=== PATIENT | male | born 1970 | race Caucasian/White ===

== ENCOUNTER 2020-04-14 01:41 | Outpatient (CLI) | payer OTHER, BC, SELFPAY ==
[2020-04-14 18:01] LABS: SARS-CoV-2 RNA PCR Negative
== END 2020-04-14 01:42 | disposition home or self-care (01) ==
LOC: ANHCOVIDDT 01:42
PROVIDERS: PCP Family Medicine; Visit Provider Internal Medicine Gastroenterology
DX: Z01.812 Encounter for preprocedural laboratory examination (principal); Z20.828 Contact with and (suspected) exposure to other viral communicable diseases
CPT/HCPCS: 87635; C9803; U0003

== ENCOUNTER 2020-04-17 03:50 | Day surgery (SDC) | payer OTHER, BC, SELFPAY ==
[2020-04-06 16:07] VITALS: BMI 25.0
[2020-04-17] MEDS: LACTATED RINGERS 1,000 ML 150 ML IV CONT (08:34)
[2020-04-17 08:40] VITALS: BP 134/91; PULSE 78; RESP 16; TEMP 36.6; O2SAT 97; BMI 25.0
--- NOTE | 2020-04-17 09:01 | P.PNAN_ITS ---
Anes - Initial Pre Proc Eval Procedure: Operation Date: 04/17/20 09:30 Proposed Procedures p Esophagogastroduodenoscopy & Screening Colonoscopy - Corey Combs MD Date/Time: 04/17/20 09:01 Surgeon: Corey Frankel MD Pre Op Diagnosis: GERD, neoplasm screening Patient Data Age: 49 Gender: M Height: 5 ft 6 in Weight: 70.3 kg Last Vital Signs Temp 97.9 F 04/17/20 08:40 Pulse 78 04/17/20 08:40 Resp 16 04/17/20 08:40 BP 134/91 H 04/17/20 08:40 Pulse Ox 97 04/17/20 08:40 Allergies Allergy/AdvReac Type Severity Reaction Status Date / Time No Known Allergies Allergy Verified 04/17/20 08:19 Home Medications Medication Instructions Recorded Confirmed Type fluticasone propionate 50 2 spray NASAL DAILY PRN 07/26/19 04/17/20 History mcg/actuation nasal spray,suspension sildenafil 50 mg tablet 50 mg PO DAILY PRN 07/26/19 04/06/20 History atorvastatin 20 mg tablet 20 mg PO DAILY #90 tablet 03/22/20 04/06/20 Rx ezetimibe 10 mg tablet 10 mg PO DAILY #90 tablet 03/22/20 04/06/20 Rx peg 3350-electrolytes 236 240 ml PO Q10M #4000 ml 04/02/20 Rx gram-22.74 gram-6.74 gram-5.86 gram solution Patient hx anesthesia problems: none Family hx anesthesia problems: none PMFSH Social History Social History Smoking status: Never smoker Alcohol intake: never Anes - Eval Final PreProcedure Day of Procedure 04/17/20 09:01 Patient weight: normal Heart: regular rate and rhythm Lungs: clear to auscultation Airway: Mallampati scale class II Neurological: alert and oriented Last oral intake: >/= 8 hours ASA classification: II Emergent: no Anesthetic plan: proceed Anesthesia type and monitoring: general GIVS and standard monitoring Informed Consent: The patient's anesthetic plan and its attendant risks and benefits were discussed with the patient/family/POA. Questions were solicited and answers provided to the satisfaction of the patient/family/POA.
--- NOTE | 2020-04-17 10:29 | PM.HPGS ---
History of Present Illness History of Present Illness Consent: Risks, benefits, and alternatives have been discussed and questions answered. Patient agrees to proceed with procedure. Chief complaint: GERD, neoplasm screening Narrative: Al Rodriges is a 49 year old male with epigastric pain and not longer using ppi, also he is due to have colonoscopy. Denies any more diarrhea. Review of Systems Constitutional: Constitutional: Denies headache(s) and Denies weakness Eyes: Eyes: Denies blurry vision ENT: Reports Normal hearing present, Denies headache(s) and Denies neck pain Cardiovascular: Cardiovascular: Denies chest pain and Denies dyspnea Respiratory: Respiratory: Denies dyspnea Gastrointestinal: Gastrointestinal: Reports no additional gastrointestinal complaints Genitourinary: Genitourinary: Denies dysuria Musculoskeletal: Musculoskeletal: Denies neck pain Integumentary/Breasts: Skin/Breast: Denies dry skin Neurologic: Reports Normal hearing present, Denies headache(s) and Denies weakness Psychiatric: Psychiatric: Denies anxiety Endocrine: Endocrine: Denies change in body appearance Hematologic/Lymphatic: Hematologic/Lymphatic: Denies easy bleeding Allergic/Immunologic: Allergic/Immunologic: Denies urticaria PMFSH Social History Social History Smoking status: Never smoker Alcohol intake: never Meds Home Medications and Allergies Home Medications Medication Instructions Recorded Confirmed Type fluticasone propionate 50 2 spray NASAL DAILY PRN 07/26/19 04/17/20 History mcg/actuation nasal spray,suspension sildenafil 50 mg tablet 50 mg PO DAILY PRN 07/26/19 04/06/20 History atorvastatin 20 mg tablet 20 mg PO DAILY #90 tablet 03/22/20 04/06/20 Rx ezetimibe 10 mg tablet 10 mg PO DAILY #90 tablet 03/22/20 04/06/20 Rx peg 3350-electrolytes 236 240 ml PO Q10M #4000 ml 04/02/20 Rx gram-22.74 gram-6.74 gram-5.86 gram solution Allergies Allergy/AdvReac Type Severity Reaction Status Date / Time No Known Allergies Allergy Verified 04/17/20 08:19 Vital Signs Vital Signs - 24 hr 04/17/20 08:40 Temperature 97.9 F Pulse Rate 78 Respiratory Rate 16 Blood Pressure 134/91 H Pulse Oximetry 97 Exam Const: General: comfortable and no acute distress HENMT: General nose exam: Normal nares present Eyes: General: appearance normal, both eyes and all related structures Neck: Neck: no JVD Resp: Auscultation: clear to auscultation bilaterally Cardio: Rate: regular rate Rhythm: regular rhythm GI: Inspection: non-distended GI Palp: Yes Soft to palpation Skin: General skin exam: normal color Neuro: General: gait normal Speech: normal speech Extrem: General: normal to inspection Psych: Mental Status: mental status grossly normal Assessment and Plan Assessment and plan (1) Gastroesophageal reflux disease: Qualifiers: Esophagitis presence: esophagitis presence not specified Qualified Code(s): K21.9 - Gastro-esophageal reflux disease without esophagitis Code(s): K21.9 - Gastro-esophageal reflux disease without esophagitis Status: Acute Assessment and Plan: will assess with egd (2) Epigastric pain: Code(s): R10.13 - Epigastric pain Status: Acute (3) Colon cancer screening: Code(s): Z12.11 - Encounter for screening for malignant neoplasm of colon Status: Acute Assessment and Plan: proceed with colonoscopy
[2020-04-17 10:32] VITALS: BP 88/52; PULSE 70; RESP 18; O2SAT 96
[2020-04-17 10:42] VITALS: BP 94/59; PULSE 64; RESP 16; O2SAT 97
[2020-04-17 10:52] VITALS: BP 102/63; PULSE 57; RESP 17; O2SAT 99
== END 2020-04-17 11:21 | disposition home or self-care (01) ==
PROVIDERS: PCP Family Medicine; Visit Provider Internal Medicine Gastroenterology
PROC: 0DJ08ZZ Inspection of Upper Intestinal Tract, Via Natural or Artificial Opening Endoscopic (ICD-10-PCS; CPT 43235; principal; 2020-04-17 09:30)
DX: Z12.11 Encounter for screening for malignant neoplasm of colon (principal); D12.3 Benign neoplasm of transverse colon; K57.30 Diverticulosis of large intestine without perforation or abscess without bleeding; K64.8 Other hemorrhoids; R10.13 Epigastric pain; K21.0 Gastro-esophageal reflux disease with esophagitis; K44.9 Diaphragmatic hernia without obstruction or gangrene; K29.50 Unspecified chronic gastritis without bleeding
CPT/HCPCS: 43239; 45385; 88305; J7120

== ENCOUNTER → 2022-09-19 09:27 | Outpatient (CLI) | payer OTHER, BC, SELFPAY ==
--- NOTE | ~2022-09-19 | XR_ITS ---
Supine and upright views of the abdomen Clinical history: Abdominal pain Findings: Bowel gas pattern is nonspecific. No evidence for obstruction or free air. No abnormal mass lesion or calcification is seen. Osseous structures are intact. Impression: No significant abnormality is seen. Reviewed, dictated and finalized at [facility]. [employer] Impression: No significant abnormality is seen.
== END ==
PROVIDERS: PCP Family Medicine; Visit Provider Family Medicine
DX: R10.31 Right lower quadrant pain (principal)
CPT/HCPCS: 74018

== ENCOUNTER → 2022-10-02 08:21 | Outpatient (CLI) | payer OTHER, BC, SELFPAY ==
--- NOTE | ~2022-10-02 | CT_ITS ---
CT Abdomen and Pelvis with contrast. History: Abdominal pain. Spiral CT of the abdomen and pelvis was performed after the administration of intravenous contrast. 1 00 cc of Omnipaque 350 was administered intravenously without complication. Dose reduction technique was used on this scan by utilizing automated exposure control and iterative reconstruction technique. The dose-length product (DLP) was 672.20 mGy-cm. Findings: Scans through the lung bases demonstrate mild atelectatic change. The liver, spleen, pancreas, gallbladder, and adrenal glands are within normal limits. Punctate nonob structing right renal stone present. Large left renal cyst measures 7 cm in diameter. No evidence of aortic aneurysm. No lymphadenopathy is seen. There is no evidence of bowel obstruction. There is no evidence to suggest acute appendicitis or dive rticulitis. Images through the pelvis were performed. Urinary bladder unremarkable. Prostate gland is enlarged. N o ascites is seen. Impression: Punctate nonobstructing right renal stone. Enlarged prostate gland. Reviewed, dictated and finalized at location . [facility] Impression: Punctate nonobstructing right renal stone. Enlarged prostate gland.
== END ==
PROVIDERS: PCP Family Medicine; Visit Provider Family Medicine
DX: R10.31 Right lower quadrant pain (principal); N20.0 Calculus of kidney; N40.0 Benign prostatic hyperplasia without lower urinary tract symptoms
CPT/HCPCS: 74177; Q9967

== ENCOUNTER 2024-05-27 12:24 | Outpatient (CLI) | payer OTHER, BC, SELFPAY ==
--- NOTE | ~2024-05-27 | US_ITS ---
EXAMINATION: US renal BI DATE: 05/27/2024 13:24 INDICATION: N28.1 - Cyst of kidney, acquired TECHNIQUE: Multiple grayscale and Doppler ultrasound images of the kidneys were obtained. COMPARISON: CT abdomen pelvis 10/02/2022 FINDINGS: The right kidney measures cm. The left kidney measures cm. The kidneys demonstrate normal parenchymal echogenicity. Simple left upper pole cyst measuring up to 8.4 cm. There is no hydronephrosis. The bl adder is normal. IMPRESSION: 8.4 cm left upper pole simple renal cyst. Reviewed, dictated and finalized at location [facility].
== END 2024-05-27 12:25 | disposition home or self-care (01) ==
LOC: ANHIMG 12:28
PROVIDERS: PCP Family Medicine; Visit Provider Nurse Practitioner
DX: N28.1 Cyst of kidney, acquired (principal)
CPT/HCPCS: 76775

== ENCOUNTER 2024-06-16 13:09 | Outpatient (CLI) | payer OTHER, BC, SELFPAY ==
--- NOTE | ~2024-06-16 | CT_ITS ---
CT of the Abdomen and Pelvis: Indication: Acquired renal cyst Technique: 2.5 mm axial scans were obtained through the abdomen and pelvis following intravenous adm inistration of 100 cc of Omnipaque 350. Dose reduction technique was used on this scan by utilizing a utomated exposure control and iterative reconstruction technique. The dose-length product (DLP) was 5 62.17 mGy-cm. COMPARISON: 10/02/2022 Findings: Scans through the lung bases are unremarkable. The liver, spleen, pancreas, gallbladder, and adrenal glands are within normal limits. 7.7 cm simple left renal cyst is unchanged. Small simple right renal cyst is unchanged. No evidence of aortic aneur ysm. No lymphadenopathy. No bowel obstruction or bowel wall thickening. There is no evidence to suggest acute appendicitis. Images through the pelvis were performed. Urinary bladder unremarkable. Prostate gland enlarged. No a scites. Impression: Bilateral benign renal cysts, unchanged, as detailed above. Enlarged prostate gland. Reviewed, dictated and finalized at location . Impression: Bilateral benign renal cysts, unchanged, as detailed above. Enlarged prostate gland.
== END 2024-06-16 13:10 | disposition home or self-care (01) ==
LOC: MICIMG 13:10
PROVIDERS: PCP Family Medicine; Visit Provider Nurse Practitioner
DX: N28.1 Cyst of kidney, acquired (principal); N40.0 Benign prostatic hyperplasia without lower urinary tract symptoms
CPT/HCPCS: 74177; Q9967

== ENCOUNTER 2025-06-09 01:38 | Day surgery (SDC) | payer OTHER, SELFPAY ==
[2025-05-30 14:46] VITALS: BMI 25.9
[2025-06-09 07:44] VITALS: BP 149/97; PULSE 89; RESP 18; TEMP 36.1; O2SAT 97; BMI 26.6
[2025-06-09] MEDS: LACTATED RINGERS 1,000 ML 150 ML IV CONT (07:50)
--- NOTE | 2025-06-09 08:14 | WPDANESEPPF ---
Anes - Initial Pre Proc Eval Procedure: Operation Date: 06/09/25 09:00 Proposed Procedures p Screening Colonoscopy - Corey Frankel MD Date/Time: 06/09/25 08:14 Surgeon: Corey Frankel MD Pre Op Diagnosis: Personal history of colon polyps, unspecified Patient Data Age: 54 Gender: M Height: 1.68 m Weight: 74.7 kg Last Vital Signs Temp 36.1 C L 06/09/25 07:44 Pulse 89 06/09/25 07:44 Resp 18 06/09/25 07:44 BP 149/97 H 06/09/25 07:44 Pulse Ox 97 06/09/25 07:44 O2 Del Method Room Air 06/09/25 07:44 Allergies Allergy/AdvReac Type Severity Reaction Status Date / Time No Known Allergies Allergy Verified 06/09/25 07:43 Home Medications ?Medication ?Instructions ?Recorded ?Confirmed ?Type fluticasone propionate 50 2 spray intranasal DAILY PRN 07/26/19 06/09/25 History mcg/actuation nasal Allergy Symptoms spray,suspension sildenafil 50 mg tablet (Viagra) 50 mg PO DAILY PRN Sexual Activity 07/12/24 05/30/25 Rx #12 tabs tamsulosin 0.4 mg capsule 0.4 mg PO DAILY #90 caps 12/20/24 06/09/25 Rx atorvastatin 20 mg tablet See Rx Instructions .Route 05/15/25 06/09/25 Rx .COMPLEX #90 tabs ezetimibe 10 mg tablet See Rx Instructions .Route 05/15/25 06/09/25 Rx .COMPLEX #90 tabs naproxen 220 mg-pseudoephedrine 1 tablet PO ONCE PRN sinus symptoms 05/30/25 05/30/25 History 120 mg ER tablet, extend release,12 hr (Aleve Cold and Sinus) Patient hx anesthesia problems: none Family hx anesthesia problems: none Results Review: All pre-operative results and documents have been reviewed as part of the pre-operative evaluation. [facility] Past Medical History Medical History Kidney stone Epigastric pain Diarrhea Colon cancer screening Surgical History Surgical History History of sinus surgery (~2018) Family History Family History Father Family history of elevated blood lipids Family history of coronary artery disease Acute myocardial infarction Colon polyp Mother Family history of elevated blood lipids Family history of diabetes mellitus in first degree relative Diabetes mellitus Sibling Family history of elevated blood lipids Other Family history of arthritis Family history of cardiovascular disease Social History Social History Smoking status: Never smoker Alcohol intake: never Substance use: never Substance use type: does not use Do You Feel Safe in your Home?: Yes Lack of Transportation: No Lack of Food: Never True Current Housing: I Have Housing Concerned About Future Housing: No Difficulty Paying Gas/Electric Bills: No Difficulty Paying for Meds: No Currently Unemployed: No Education: Associate Degree Difficulty w/ Childcare or Family Care: No Living arrangements: with family Occupation/Education: occupation Gender identity (if verbalized by the patient): Male Spiritual care concerns: No Agree to blood products: Yes Anes - Eval Final PreProcedure Day of Procedure 06/09/25 08:14 Patient weight: overweight Heart: regular rate and rhythm Lungs: clear to auscultation Airway: Mallampati scale class II Neurological: alert and oriented Last oral intake: >/= 8 hours ASA classification: II Emergent: no Anesthetic plan: proceed Anesthesia type and monitoring: general GIVS and standard monitoring Results Review: All pre-operative results and documents have been reviewed as part of the pre-operative evaluation. Informed Consent: The patient's anesthetic plan and its attendant risks and benefits were discussed with the patient/family/POA. Questions were solicited and answers provided to the satisfaction of the patient/family/POA.
--- NOTE | 2025-06-09 08:43 | PM.HPGS ---
History of Present Illness History of Present Illness Consent: Risks, benefits, and alternatives have been discussed and questions answered. Patient agrees to proceed with procedure. Chief complaint: Personal history of colon polyps, unspecified Narrative: Al Rodriges is a 54 year old male with colon polyp in 2019 Review of Systems Review of Systems: All systems reviewed & are unremarkable except as noted in HPI and below PMFSH Past Medical History Medical History Kidney stone Epigastric pain Diarrhea Colon cancer screening Surgical History Surgical History History of sinus surgery (~2018) Family History Family History Father Family history of elevated blood lipids Family history of coronary artery disease Acute myocardial infarction Colon polyp Mother Family history of elevated blood lipids Family history of diabetes mellitus in first degree relative Diabetes mellitus Sibling Family history of elevated blood lipids Other Family history of arthritis Family history of cardiovascular disease Social History Social History Smoking status: Never smoker Alcohol intake: never Substance use: never Substance use type: does not use Do You Feel Safe in your Home?: Yes Lack of Transportation: No Lack of Food: Never True Current Housing: I Have Housing Concerned About Future Housing: No Difficulty Paying Gas/Electric Bills: No Difficulty Paying for Meds: No Currently Unemployed: No Education: Associate Degree Difficulty w/ Childcare or Family Care: No Living arrangements: with family Occupation/Education: occupation Gender identity (if verbalized by the patient): Male Spiritual care concerns: No Agree to blood products: Yes Meds Home Medications and Allergies Home Medications ?Medication ?Instructions ?Recorded ?Confirmed ?Type fluticasone propionate 50 2 spray intranasal DAILY PRN 07/26/19 06/09/25 History mcg/actuation nasal Allergy Symptoms spray,suspension sildenafil 50 mg tablet (Viagra) 50 mg PO DAILY PRN Sexual Activity 07/12/24 05/30/25 Rx #12 tabs tamsulosin 0.4 mg capsule 0.4 mg PO DAILY #90 caps 12/20/24 06/09/25 Rx atorvastatin 20 mg tablet See Rx Instructions .Route 05/15/25 06/09/25 Rx .COMPLEX #90 tabs ezetimibe 10 mg tablet See Rx Instructions .Route 05/15/25 06/09/25 Rx .COMPLEX #90 tabs naproxen 220 mg-pseudoephedrine 1 tablet PO ONCE PRN sinus symptoms 05/30/25 05/30/25 History 120 mg ER tablet, extend release,12 hr (Aleve Cold and Sinus) Allergies Allergy/AdvReac Type Severity Reaction Status Date / Time No Known Allergies Allergy Verified 06/09/25 07:43 Vital Signs Vital Signs - 24 hr 06/09/25 07:44 Temperature 97 F L Pulse Rate 89 Respiratory Rate 18 Blood Pressure 149/97 H Pulse Oximetry 97 Oxygen Delivery Room Air Exam Const: General: comfortable and no acute distress HENMT: Face/Nose/Sinus: Normal nares present Eyes: General: appearance normal, both eyes and all related structures Neck: Neck: no JVD Resp: Auscultation: clear to auscultation bilaterally Cardio: Rate: regular rate Rhythm: regular rhythm GI: Inspection: non-distended GI Palp: Yes Soft to palpation Skin: General skin exam: normal color Extrem: General: normal to inspection Psych: Mental Status: mental status grossly normal Assessment and Plan Assessment and plan (1) Polyp, colonic: Code(s): K63.5 - Polyp of colon Status: Acute Assessment and Plan: colonoscopy
--- NOTE | 2025-06-09 09:00 | S_PTH ---
PATIENT: Al Rodriges LOC: [facility]#:[id number] AGE/SX: 54/M ROOM: RE06/09/[address]: Corey Frankel MD : 1970 BED: DIS: 06/09/2025 SPEC #: [id number] RECD: 06/09/25 09:27 STATUS: SAVANNAH RELaron #: [id number] ANA MARIA: 06/09/25 09:[address]: Corey Frankel DEPT: [facility] Surgical RECD BY: Laura Coker ENTERED: 06/09/25 09:27 SP TYPE: Surgical OTHR DR: Melissa Orr DO Tissues: A - Colon Polypectomy Procedures: Hematoxylin and Eosin Stain Gross and Microscopic Level 4
[2025-06-09 09:02] VITALS: BP 111/75; PULSE 82; RESP 16; O2SAT 96
[2025-06-09 09:12] VITALS: BP 118/79; PULSE 73; RESP 18; O2SAT 96
[2025-06-09 09:22] VITALS: BP 138/88; PULSE 75; RESP 19; O2SAT 98
== END 2025-06-09 09:33 | disposition home or self-care (01) ==
PROVIDERS: PCP Family Medicine; Referring Provider Family Medicine; Visit Provider Internal Medicine Gastroenterology
PROC: 0DJD8ZZ Inspection of Lower Intestinal Tract, Via Natural or Artificial Opening Endoscopic (ICD-10-PCS; CPT 45378; principal; 2025-06-09 09:00)
DX: Z12.11 Encounter for screening for malignant neoplasm of colon (principal); D12.3 Benign neoplasm of transverse colon; K64.8 Other hemorrhoids; K57.30 Diverticulosis of large intestine without perforation or abscess without bleeding; Z79.1 Long term (current) use of non-steroidal anti-inflammatories (NSAID); Z98.890 Other specified postprocedural states; Z87.442 Personal history of urinary calculi; Z83.719 Family history of colon polyps, unspecified; Z82.49 Family history of ischemic heart disease and other diseases of the circulatory system
CPT/HCPCS: 45380; 88305; J2704; J7120